=== PATIENT | female | born 1975 ===

== ENCOUNTER → 2019-10-18 | Outpatient (CLI) | payer BC, OTHER ==
--- NOTE | 2019-10-18 13:34 | Diagnostic Imaging Report ---
INDICATION: Routine screening. COMPARISON: Comparison is made with prior mammograms from 10/15/2018 and 06/12/2016. 2-D and 3-D bilateral screening mammography was performed. The current study was also evaluated with a Computer Aided Detection (CAD) system. 3-D tomosynthesis was also performed and reviewed. FINDINGS: Bilateral subpectoral breast implants are again noted. Implant contours are smooth. Both breasts remain heterogeneously dense, limiting the sensitivity of mammography. The parenchymal pattern is stable. No mass or malignant-appearing microcalcifications are seen. Axillae are unremarkable. IMPRESSION: No mammographic features suspicious for malignancy are identified. ACR BI-RADS Category 2: Benign findings. Result letter will be mailed to the patient. Note: At least 10% of breast cancer is not imaged by mammography. Dictated by: Dictated on workstation # [id number]
== END ==
LOC: RAD 12:56
PROVIDERS: ATTEND Nurse Practitioner
DX: Z12.31 Encounter for screening mammogram for malignant neoplasm of breast (principal); Z01.419 Encounter for gynecological examination (general) (routine) without abnormal findings; Z98.82 Breast implant status
CPT/HCPCS: 77067

== ENCOUNTER → 2021-03-22 | Outpatient (CLI) | payer BC, OTHER ==
--- NOTE | 2021-03-22 15:38 | Diagnostic Imaging Report ---
PROCEDURE: US Non-ob pelvis comp/trans. INDICATION: Dysfunctional uterine bleeding, spotting between cycles. TECHNIQUE: Multiple real time tipton scale sonographic images were obtained of the pelvis transabdominally and endovaginally. CORRELATION STUDY: None FINDINGS: UTERUS: 7.3 x 3.3 x 4.0 cm. The uterus appears unremarkable. ENDOMETRIUM: 4 mm. The endometrium appearing unremarkable. RIGHT OVARY: 3.3 x 2.4 x 1.6 cm Slightly prominent cyst 1.8 x 1.4 x 1.4 cm. Normal blood flow. LEFT OVARY: 2.4 x 1.2 x 2.5 cm The left ovary has an unremarkable appearance. No concerning mass. Blood flow is present. No significant free pelvic fluid. IMPRESSION: 1. Dominant right ovarian cyst, likely physiologic. 2. Endometrial thickness unremarkable Dictated by: Dictated on workstation # [id number]
== END ==
LOC: RAD 14:30
PROVIDERS: ATTEND Nurse Practitioner
DX: N83.201 Unspecified ovarian cyst, right side (principal)
CPT/HCPCS: 76830; 76856